=== PATIENT | female | born 1995 | race African-American/Black ===

== ENCOUNTER 2019-01-08 07:22 | Emergency (ER) | payer SELFPAY ==
--- NOTE | 2019-01-08 08:15 | RAD ---
EXAM: Chest Two Views 01/08/2019 8:12 AM HISTORY: Cough COMPARISON: None. FINDINGS: Heart: Normal in size and contour. Pulmonary vessels: Normal. Costophrenic angles: Clear. Lungs: No acute airspace consolidation. Pneumothorax: None. Osseous structures:Intact. Additional findings: None. IMPRESSION: No significant acute intrathoracic disease.
== END 2019-01-08 08:48 | disposition home or self-care (01) ==
LOC: ERS 07:22
DX: R05 Cough (principal); R11.2 Nausea with vomiting, unspecified; I10 Essential (primary) hypertension; J45.909 Unspecified asthma, uncomplicated
CPT/HCPCS: 71046